=== PATIENT | male | born 1940 | race Caucasian/White ===

== ENCOUNTER 2017-10-10 10:53 | Day surgery (SDC) | payer MEDICARE, OTHER ==
[~2017-10-10 10:53] MED LIST: Buffered Lidocaine 0.9% SYRIN* 5 ML/SYR SYRINGE INTRADERM ONE
[2017-10-10] MEDS ORDERED: Lidocaine 1%* 5 ML VIAL ONE (11:00)
[2017-10-10] MEDS ORDERED: Cyclopentolate 1% OPTH.SOL* 2 ML BTL ONE (11:00)
[2017-10-10] MEDS ORDERED: Phenylephrine 2.5% OPTH.SOL* 2 ML BTL ONE (11:00)
[2017-10-10] MEDS ORDERED: Ketorolac 0.5% OPHTH (NF) 0.5 % 5 ML BTL ONE (11:00)
[2017-10-10] MEDS ORDERED: acetaZOLAMIDE TAB* 250 MG ONE (11:00)
[2017-10-10] MEDS ORDERED: Povidone Iodine 5% OPTH* 30 ML BTL ONE (11:00)
[2017-10-10] MEDS ORDERED: Neomycin/Polymy/Dex OPTH.SUSP* MAXITROL 0.1% 5 ML ONE (11:00)
[2017-10-10] MEDS ORDERED: Lidocaine 2% EPI 1:200000 MPF*10-20 ML VIAL ONE (11:00)
[2017-10-10] MEDS ORDERED: Proparacaine 0.5% OPHTH.SOL* 15 ML BTL ONE (11:01)
[2017-10-10] MEDS ORDERED: Midazolam* 1 MG/ML 2 ML VIAL (2 MG) ONE (13:33)
[2017-10-10 14:03] VITALS: BP 119/60
--- NOTE | 2017-10-11 02:57 | OP ---
DATE OF OPERATION: 10/10/17 - [facility] DATE OF : 38 SURGEON: Everett Kirkpatrick M.D. ANESTHESIA: Local with MAC. PRE-OP DIAGNOSES: Cataract, left eye; primary open angle glaucoma, left eye. POST-OP DIAGNOSES: Cataract, left eye; primary open angle glaucoma, left eye. OPERATIVE PROCEDURE: Extracapsular cataract extraction with intraocular lens and iStent, left eye. COMPLICATIONS: None. DESCRIPTION OF PROCEDURE: The patient was brought to the operating room after being given 1/2% Alcaine with epinephrine drops in the preoperative area. The eye was prepped and draped in the usual sterile fashion. Sterile drape and eyelid speculum were placed. Again, topical 1/2% Alcaine with epinephrine was given. A paracentesis incision was made at the 3 o'clock position with the No.75 blade. Clear cornea incision 2.2 x 2.2-mm was created at the 6 o'clock position starting at the anterior limbus using the 2.2-mm keratome. The anterior chamber was irrigated with 0.4 mL of 1% non-preservative intracameral lidocaine and filled with DisCoVisc. A capsulorrhexis was completed using the cystotome and the Utrata forceps. Hydrodissection was performed with balanced salt solution. The lens nucleus was removed with the Phacoemulsification handpiece without incident. Cortex was removed with the irrigation-aspiration handpiece. The capsular bag was re-inflated using DisCoVisc and an SN60WF 16.5 implant was inserted with the shooter. It was a very small pupil, so a Malyugin ring was placed prior to capsulorrhexis and removed after insertion of the lens and then an iStent was placed [id number] inserted into the trabecular meshwork with its shooter at the 9 o'clock position. The irrigation-aspiration handpiece was used to remove all residual DisCoVisc. The eye was refilled with balanced salt solution and the wound checked and found to be watertight. Topical Maxitrol drops were given. Indication for complex cataract surgery: Pupil abnormalities requiring pupil dilation device. [id number]/[facility] #: [id number] [facility]
== END 2017-10-10 14:13 | disposition home or self-care (01) ==
LOC: OREAST 10:53
PROVIDERS: ATTEND Specialist
DX: H25.812 Combined forms of age-related cataract, left eye (principal); H40.1121 Primary open-angle glaucoma, left eye, mild stage; H21.562 Pupillary abnormality, left eye; D31.31 Benign neoplasm of right choroid; H53.021 Refractive amblyopia, right eye; Z87.891 Personal history of nicotine dependence; I10 Essential (primary) hypertension; J44.9 Chronic obstructive pulmonary disease, unspecified; K21.9 Gastro-esophageal reflux disease without esophagitis; E03.9 Hypothyroidism, unspecified; R73.01 Impaired fasting glucose; M19.90 Unspecified osteoarthritis, unspecified site; E78.5 Hyperlipidemia, unspecified
CPT/HCPCS: A9270-GY; C1783; J2250; V2632

== ENCOUNTER 2020-07-10 09:37 | Inpatient (IN) ==
[2020-07-10] MEDS ORDERED: NS 0.9% 1000 ml BAG 1,000 ML IV ONE ×2 (10:54→12:23)
[2020-07-10 11:47] LABS: Hematocrit 42 % (42-52); Hemoglobin 14.3 g/dL (14.0-18.0); Mean Corpuscular HGB Conc 34 g/dL (31-36); Mean Corpuscular Hemoglobin 31 pg (27-31); Mean Corpuscular Volume 90 fL (80-94); Platelet Count 271 10^3/uL (150-450); Red Blood Count 4.67 10^6 /uL (4.18-5.48); Red Cell Distribution Width 12 % (10-15); White Blood Count 12.4 10^3/uL (3.5-10.8)
[2020-07-10 12:06] LABS: Albumin/Globulin Ratio 1.2 (1-3); BUN/Creatinine Ratio 18.1 (8-20); C Reactive Protein 65.05 mg/L (<8.01); Calcium 9.4 mg/dL (8.6-10.3); EGFR African American 12.9 (>60); EGFR Non-African American 10.6 (>60); Globulin 3.3 g/dL (2-4); Magnesium 2.1 mg/dL (1.9-2.7); Total Bilirubin 0.7 mg/dL (0.2-1.0); Total Protein 7.3 g/dL (6.4-8.9)
[2020-07-10 12:25] LABS: Potassium 2.8 mmol/L (3.5-5.0)
[2020-07-10] MEDS ORDERED: Potassium Chlor 20 meq TAB.ER PO ONE ×2 (12:37→21:00)
[2020-07-10] MEDS: KCL 10 MEQ/50 ML IVPREMIX 10 MEQ/50 ML BAG IV SCH ×2 (13:18→14:42)
[2020-07-10 14:06] LABS: TSH Ultra Thyroid Stim Horm 1.44 mcIU/mL (0.34-5.60)
[2020-07-10 14:31] LABS: ABS Monocytes 1.6 10^3/ul (0-0.8); ABS Neutrophils 9.7 10^3/ul (1.5-7.7); Eosinophil % 0.3 %; Lymphocyte % 8.4 %
[2020-07-10] MEDS: NS 0.9% 1000 ml BAG 1,000 ML IV SCH (16:23)
[2020-07-10 16:51] LABS: BUN/Creatinine Ratio 19.5 (8-20); Calcium 8.5 mg/dL (8.6-10.3); EGFR African American 14.2 (>60); EGFR Non-African American 11.7 (>60)
[2020-07-10 18:58] LABS: Urine Appearance Cloudy; Urine Bilirubin Negative (Negative); Urine Blood Negative (Negative); Urine Color Yellow; Urine Glucose Negative (Negative); Urine Ketones Negative (Negative); Urine Nitrite Negative (Negative); Urine Protein Negative (Negative); Urine Specific Gravity 1.014 (1.010-1.030); Urine Urobilinogen Negative (Negative)
[2020-07-10 19:01] LABS: Urine Creatinine Concentration 155.39 mg/dL
[2020-07-10] MEDS: Heparin 5000 UNITS/ML 1 mL VIAL SUBCUT SCH (21:35)
[2020-07-11] MEDS: NS 0.9% 1000 ml BAG 1,000 ML IV SCH ×3 (00:54→20:52)
[2020-07-11 06:27] LABS: ABS Eosinophils 0.1 10^3/ul (0-0.6); ABS Lymphocytes 0.9 10^3/ul (1.0-4.8); ABS Monocytes 1.3 10^3/ul (0-0.8); ABS Neutrophils 7.4 10^3/ul (1.5-7.7); Hematocrit 34 % (42-52); Hemoglobin 11.8 g/dL (14.0-18.0); Lymphocyte % 9.5 %; Mean Corpuscular HGB Conc 35 g/dL (31-36); Mean Corpuscular Hemoglobin 31 pg (27-31); Mean Corpuscular Volume 89 fL (80-94); Mean Platelet Volume 8.6 fL (7.4-10.4); Platelet Count 225 10^3/uL (150-450); Red Blood Count 3.77 10^6 /uL (4.18-5.48); Red Cell Distribution Width 12 % (10-15); White Blood Count 9.7 10^3/uL (3.5-10.8)
[2020-07-11 06:39] LABS: BUN/Creatinine Ratio 20.5 (8-20); Calcium 8.5 mg/dL (8.6-10.3); EGFR African American 18.1 (>60); EGFR Non-African American 14.9 (>60); Magnesium 1.9 mg/dL (1.9-2.7); Potassium 3.6 mmol/L (3.5-5.0)
[2020-07-11] MEDS: Heparin 5000 UNITS/ML 1 mL VIAL SUBCUT SCH ×2 (09:58→20:51)
[2020-07-11] MEDS ORDERED: Potassium Chlor 20 meq TAB.ER PO ONE (14:49)
[2020-07-12] MEDS: NS 0.9% 1000 ml BAG 1,000 ML IV SCH (04:59)
[2020-07-12 08:12] LABS: ABS Eosinophils 0.3 10^3/ul (0-0.6); ABS Lymphocytes 1.2 10^3/ul (1.0-4.8); ABS Monocytes 1.3 10^3/ul (0-0.8); BUN/Creatinine Ratio 20.1 (8-20); Calcium 8.6 mg/dL (8.6-10.3); EGFR African American 25.2 (>60); EGFR Non-African American 20.8 (>60); Eosinophil % 2.2 %; Hematocrit 33 % (42-52); Hemoglobin 11.4 g/dL (14.0-18.0); Lymphocyte % 9.2 %; Magnesium 1.8 mg/dL (1.9-2.7); Mean Corpuscular HGB Conc 34 g/dL (31-36); Mean Corpuscular Hemoglobin 31 pg (27-31); Mean Corpuscular Volume 90 fL (80-94); Mean Platelet Volume 9.1 fL (7.4-10.4); Nucleated Red Blood Cells % 0.1; Platelet Count 216 10^3/uL (150-450); Potassium 3.9 mmol/L (3.5-5.0); Red Blood Count 3.71 10^6 /uL (4.18-5.48); Red Cell Distribution Width 12 % (10-15); White Blood Count 12.8 10^3/uL (3.5-10.8)
[2020-07-12] MEDS: Heparin 5000 UNITS/ML 1 mL VIAL SUBCUT SCH ×2 (09:10→20:47)
[2020-07-13 06:25] LABS: ABS Basophils 0.1 10^3/ul (0-0.2); ABS Eosinophils 0.5 10^3/ul (0-0.6); ABS Lymphocytes 1.6 10^3/ul (1.0-4.8); ABS Monocytes 1.4 10^3/ul (0-0.8); ABS Neutrophils 12.9 10^3/ul (1.5-7.7); Eosinophil % 2.8 %; Hematocrit 34 % (42-52); Hemoglobin 11.3 g/dL (14.0-18.0); Mean Corpuscular HGB Conc 34 g/dL (31-36); Mean Corpuscular Hemoglobin 31 pg (27-31); Mean Corpuscular Volume 91 fL (80-94); Mean Platelet Volume 8.9 fL (7.4-10.4); Platelet Count 239 10^3/uL (150-450); Red Cell Distribution Width 12 % (10-15); White Blood Count 16.4 10^3/uL (3.5-10.8)
[2020-07-13 06:48] LABS: BUN/Creatinine Ratio 20.6 (8-20); C Reactive Protein 38.67 mg/L (<8.01); EGFR African American 31.2 (>60); EGFR Non-African American 25.8 (>60); Magnesium 1.7 mg/dL (1.9-2.7); Potassium 3.8 mmol/L (3.5-5.0)
[2020-07-13] MEDS: Heparin 5000 UNITS/ML 1 mL VIAL SUBCUT SCH (09:32)
[2020-07-13 17:22] VITALS: BP 108/48
== END 2020-07-13 18:05 | disposition home or self-care (01) | DRG 392 ==
LOC: ED 09:37 → MEDTELE 13:58
PROVIDERS: ADMIT Student in an Organized Health Care Education/Training Program; ATTEND Hospitalist